=== PATIENT | male | born 1955 ===

== ENCOUNTER → 2017-02-13 15:00 | Outpatient (CLI) | payer OTHER ==
[~2017-02-13 15:00] MED LIST: EFFEXOR XR150 MG; FORTAMET1000 MG
== END | disposition home or self-care (01) ==
LOC: PPHC 15:00
DX: R05 Cough (principal); R50.9 Fever, unspecified

== ENCOUNTER 2017-06-28 16:09 | Emergency (ER) | payer OTHER ==
[~2017-06-28] VITALS: Ht 182.9 cm; Wt 149.7 kg
[2017-06-28] MEDS ORDERED: LISINOPRIL10 MG (16:45)
[2017-06-28] MEDS ORDERED: KETO10TA2 PO (20:04)
[2017-06-28] MEDS ORDERED: ORPHENADRINE C100 MG PO (20:04)
[2017-06-28] MEDS ORDERED: CYCLOBENZAPRINE10 MG PO (20:04)
== END 2017-06-28 21:21 | disposition home or self-care (01) ==
LOC: ER 16:09
DX: S00.83XA Contusion of other part of head, initial encounter (principal); S23.3XXA Sprain of ligaments of thoracic spine, initial encounter; W18.39XA Other fall on same level, initial encounter; Y93.89 Activity, other specified; Y92.89 Other specified places as the place of occurrence of the external cause; Y99.8 Other external cause status